=== PATIENT | male | born 1970 | race Caucasian/White ===

== ENCOUNTER 2016-10-27 01:41 | Emergency (ER) | payer OTHER ==
[~2016-10-27] VITALS: Ht 182.9 cm; Wt 128.5 kg
[~2016-10-27 01:41] MED LIST: MELOXICAM15 MG PO; METHOCARBAMOL750 MG PO; NOHOMEMEDS
[2016-10-27] MEDS ORDERED: MEDROL DOSEPAK4 MG PO (04:47)
[2016-10-27 05:03] VITALS: BP 134/99
== END 2016-10-27 05:03 | disposition home or self-care (01) ==
LOC: EXP 01:41 → EME 01:41 → EXP 05:03
DX: L50.9 Urticaria, unspecified (principal); I10 Essential (primary) hypertension
CPT/HCPCS: 99281; 99284; J7512

== ENCOUNTER 2016-12-30 07:33 | Emergency (ER) | payer OTHER ==
[~2016-12-30] VITALS: Ht 182.9 cm; Wt 129.0 kg
[~2016-12-30 07:33] MED LIST changes: +MEDROL DOSEPAK4 MG PO
[2016-12-30 07:35] VITALS: BP 146/83
[2016-12-30] MEDS ORDERED: AQUAPHOR W-NAT50 GM TP (08:15)
[2016-12-30] MEDS ORDERED: BACTRIM,SEPT1 TABLET PO (08:15)
== END 2016-12-30 08:52 | disposition home or self-care (01) ==
LOC: EME 07:33
DX: L55.0 Sunburn of first degree (principal); L73.9 Follicular disorder, unspecified; I10 Essential (primary) hypertension; Z86.14 Personal history of Methicillin resistant Staphylococcus aureus infection
CPT/HCPCS: 99281; 99283

== ENCOUNTER 2017-03-29 19:14 | Emergency (ER) | payer OTHER ==
[~2017-03-29] VITALS: Ht 182.9 cm; Wt 127.9 kg
[~2017-03-29 19:14] MED LIST changes: +AQUAPHOR W-NAT50 GM TP; +BACTRIM,SEPT1 TABLET PO
[2017-03-29 19:43] LABS: HEMATOCRIT 41.9 % (38.0-50.0); MCH 30.7 PG (29.0-34.0); MCHC 34.8 G/DL (30.0-36.0); MEAN PLAT.VOLUME 9.3 uM^3 (9.0-12.4); PLATELET COUNT 191 K/uL (156-360); RBC DIS.WIDTH-CV 12.8 % (11.8-14.6); RBC DIS.WIDTH-SD 41.1 % (39-53); RED BLOOD COUNT 4.76 M/uL (4.00-5.50); WHITE BLOOD COUNT 9.9 K/uL (4.1-10.2)
[2017-03-29 20:07] LABS: TROP-I INTERPRETATION NEGATIVE; TROPONIN-I < 0.01 ng/mL (0.0-0.30)
[2017-03-29 20:12] LABS: CHLORIDE 102 mEq/L (99-109); POTASSIUM 3.8 mEq/L (3.7-5.4); SODIUM 139 mEq/L (136-147)
[2017-03-29 20:15] LABS: GLUCOSE 106 mg/dL (70-99)
[2017-03-29 20:16] LABS: ANION GAP 10 MEQ/L (2-14); TOTAL BILIRUBIN 0.6 mg/dL (0.0-1.0)
[2017-03-29 20:18] LABS: ALKALINE PHOSPHATASE 76 IU/L (3-129); GFR ESTIMATE (CALCULATED) > 59 mL/min/
[2017-03-29 20:19] LABS: UREA NITROGEN (BUN) 23 mg/dL (9-23)
[2017-03-29 20:20] LABS: DIRECT BILIRUBIN 0.2 mg/dL (0.0-0.3)
[2017-03-29 20:22] LABS: LIPASE 16 U/L (1.0-51.0)
[2017-03-29 23:00] LABS: TROP-I INTERPRETATION NEGATIVE; TROPONIN-I < 0.01 ng/mL (0.0-0.30)
[2017-03-29 23:20] VITALS: BP 140/86
== END 2017-03-29 23:21 | disposition home or self-care (01) ==
LOC: EME 19:14
PROVIDERS: Physician Assistant
DX: R07.9 Chest pain, unspecified (principal); I10 Essential (primary) hypertension
CPT/HCPCS: 71020; 74176; 80048; 80076; 83690; 84484; 85027; 93005; 99281; 99284; J1885